=== PATIENT | male | born 1980 | race Caucasian/White ===

== ENCOUNTER 2021-03-31 11:28 | Inpatient (IN) | payer BC ==
[2021-03-31] MEDS ORDERED: MAGNESIUM CITRATE 300 ML BOTTLE PO PRN (12:29)
[2021-03-31] MEDS ORDERED: MAGNESIUM HYDROX 2400MG/30ML ORAL SUSPENSION 30 ML CUP PO PRN (12:29)
[2021-03-31] MEDS ORDERED: ACETAMINOPHEN 325 MG TABLET (FP) PO PRN ×2 (12:29)
[2021-03-31] MEDS ORDERED: METHOCARBAMOL 500 MG TABLET PO PRN (12:29)
[2021-03-31] MEDS ORDERED: MAG HYDROX/AL HYDROX/SIMETH 30 ML UNIT-DOSE CUP PO PRN (12:29)
[2021-03-31] MEDS ORDERED: NICOTINE POLACRILEX 2 MG GUM BUC PRN (12:29)
[2021-03-31] MEDS ORDERED: BISMUTH SUBSALICYLATE 524 MG/30 ML PO PRN (12:29)
[2021-03-31] MEDS ORDERED: IBUPROFEN 400 MG TABLET (FP) PO PRN (12:29)
[2021-03-31] MEDS ORDERED: LORazepam 1 MG TABLET PO PRN (12:29)
[2021-03-31] MEDS ORDERED: MENTHOL/PHENOL 1 EACH UD MM PRN (12:29)
[2021-03-31] MEDS ORDERED: ONDANSETRON *ODT* 4 MG TABLET SL PRN (12:29)
[2021-03-31 12:31] VITALS: BMI 25.8
[2021-03-31] MEDS ORDERED: amLODIPine BESYLATE 5 MG TABLET (FP) ONE (12:34)
[2021-03-31] MEDS ORDERED: amLODIPine BESYLATE 5 MG TABLET (FP) PO ONE (13:30)
[2021-03-31] MEDS ORDERED: amLODIPine BESYLATE 10 MG TABLET (FP) PO ONE (13:30)
[2021-03-31] MEDS: hydrOXYzine PAMOATE 25 MG CAPSULE (FP) PO SCH ×3 (17:24→22:29)
[2021-03-31 17:26] LABS: HEMOGLOBIN 13.6 GM/dL (11.7-16.9); MCH 32.4 pg (25.7-33.7); MCHC 33.9 g/dl (32.0-35.9); MEAN CELL VOLUME 95.5 fl (80-96); MEAN PLT VOLUME 6.9 fl (7.5-11.1); PLATELET COUNT 338 10^3/uL (134-434); RBC 4.19 M/mm3 (4.00-5.60); RDW 12.8 % (11.9-15.9); WHITE BLOOD COUNT 7.7 K/mm3 (4.0-10.0)
[2021-03-31 17:30] LABS: ALBUMIN 4.2 g/dl (3.4-5.0); BLOOD UREA NITROGEN 11.3 mg/dL (7-18); CALCIUM 9.5 mg/dL (8.5-10.1)
[2021-03-31 17:33] LABS: CREATININE 1.1 mg/dL (0.55-1.3)
[2021-03-31] MEDS: LORazepam 2 MG TABLET PO SCH ×2 (17:33→22:28)
[2021-03-31 17:34] LABS: BILIRUBIN,TOTAL 0.5 mg/dL (0.2-1)
[2021-03-31] MEDS: traZODone HCL 50 MG TABLET (FP) PO SCH (22:29)
[2021-03-31] MEDS: BUPRENORPHINE/NALOXONE 8 MG/2 MG FILM PACKET SL SCH (22:29)
[2021-03-31] MEDS: MELATONIN 5 MG TABLETS PO SCH (22:29)
[2021-03-31] MEDS: THIAMINE HCL 100 MG TABLET (FP) PO SCH (22:29)
[2021-04-01] MEDS: hydrOXYzine PAMOATE 25 MG CAPSULE (FP) PO SCH ×5 (05:33→22:14)
[2021-04-01] MEDS: LORazepam 2 MG TABLET PO SCH ×4 (05:33→22:14)
[2021-04-01] MEDS: BUPRENORPHINE/NALOXONE 8 MG/2 MG FILM PACKET SL SCH ×2 (10:34→22:14)
[2021-04-01] MEDS: amLODIPine BESYLATE 10 MG TABLET (FP) PO SCH (10:34)
[2021-04-01] MEDS: PRENATAL VITAMINS W/ FOLIC ACID TABLET (FP) PO SCH (10:34)
[2021-04-01] MEDS: THIAMINE HCL 100 MG TABLET (FP) PO SCH (22:14)
[2021-04-01] MEDS: traZODone HCL 50 MG TABLET (FP) PO SCH (22:14)
[2021-04-01] MEDS: MELATONIN 5 MG TABLETS PO SCH (22:14)
[2021-04-02] MEDS: hydrOXYzine PAMOATE 25 MG CAPSULE (FP) PO SCH ×5 (06:02→22:12)
[2021-04-02] MEDS: LORazepam 1 MG TABLET PO SCH ×4 (06:02→22:12)
[2021-04-02] MEDS: PRENATAL VITAMINS W/ FOLIC ACID TABLET (FP) PO SCH (10:26)
[2021-04-02] MEDS: amLODIPine BESYLATE 10 MG TABLET (FP) PO SCH (10:26)
[2021-04-02] MEDS: BUPRENORPHINE/NALOXONE 8 MG/2 MG FILM PACKET SL SCH ×2 (10:27→22:12)
[2021-04-02] MEDS: THIAMINE HCL 100 MG TABLET (FP) PO SCH (22:12)
[2021-04-02] MEDS: traZODone HCL 50 MG TABLET (FP) PO SCH (22:12)
[2021-04-02] MEDS: MELATONIN 5 MG TABLETS PO SCH (22:12)
[2021-04-03] MEDS ORDERED: LORazepam 0.5 MG TABLET PO PRN
[2021-04-03] MEDS: hydrOXYzine PAMOATE 25 MG CAPSULE (FP) PO SCH ×3 (05:30→13:20)
[2021-04-03] MEDS: LORazepam 0.5 MG TABLET PO SCH ×2 (05:30→10:23)
[2021-04-03] MEDS: PRENATAL VITAMINS W/ FOLIC ACID TABLET (FP) PO SCH (10:23)
[2021-04-03] MEDS: amLODIPine BESYLATE 10 MG TABLET (FP) PO SCH (10:23)
[2021-04-03] MEDS: BUPRENORPHINE/NALOXONE 8 MG/2 MG FILM PACKET SL SCH (10:24)
[2021-04-03 13:06] VITALS: BP 157/94; PULSE 105; TEMP 96.2
[2021-04-04] MEDS ORDERED: LORazepam 0.5 MG TABLET PO ONE (05:00)
== END 2021-04-03 13:27 | disposition home or self-care (01) | DRG 897 ==
LOC: YASAS 11:28 → Y3N 13:45
PROVIDERS: ADMIT Allergy & Immunology; ATTEND Allergy & Immunology
PROC: HZ2ZZZZ Detoxification Services for Substance Abuse Treatment (ICD-10-PCS; principal; 2021-03-31)
DX: F10.230 Alcohol dependence with withdrawal, uncomplicated (principal); F11.20 Opioid dependence, uncomplicated; F19.282 Other psychoactive substance dependence with psychoactive substance-induced sleep disorder; F17.210 Nicotine dependence, cigarettes, uncomplicated; F19.24 Other psychoactive substance dependence with psychoactive substance-induced mood disorder; F32.9 Major depressive disorder, single episode, unspecified; I10 Essential (primary) hypertension; Z91.5 Personal history of self-harm
CPT/HCPCS: 36415; 80053; 85027; 86780; 93005; 93010; C9803; U0003; U0005